=== PATIENT | female | born 1990 | race Asian ===

== ENCOUNTER 2020-12-19 08:14 | Inpatient (IN) | payer OTHER ==
[~2020-12-19] VITALS: Ht 167.6 cm; Wt 76.0 kg
[2020-12-19] MEDS: LACTATED RINGERS 1,000 ML IV SCH ×3 (08:30→22:30)
[2020-12-19 08:52] LABS: BASOPHILS % (AUTO) 0 % (0-1); EOSINOPHILS % (AUTO) 0 % (1-7); LYMPHOCYTES % (AUTO) 10 % (22-44); MEAN CORPUSCULAR HEMOGLOBIN 33.4 pg (27.0-34.8); MEAN CORPUSCULAR HGB CONC 34.1 g/dL (32.4-35.8); MEAN PLATELET VOLUME 8.2 fL (7.4-10.4); MONOCYTES % (AUTO) 5 % (2-9); NEUTROPHILS % (AUTO) 84 % (42-75); PLATELET COUNT 253 x10^3/uL (130-400); RED BLOOD COUNT 3.62 x10^6/uL (3.82-5.3)
[2020-12-19] MEDS ORDERED: OXYTOCIN 30U/ 0.9% NaCL 500ML 500 ML IV ONE (09:00)
[2020-12-19] MEDS ORDERED: METOCLOPRAMIDE 5 MG/ML, 2ML IVPush PRN (09:00)
[2020-12-19] MEDS ORDERED: CALCIUM CARBONATE 500 MG TAB.CHEW PO PRN (09:00)
[2020-12-19] MEDS ORDERED: OXYTOCIN 30U/ 0.9% NaCL 500ML 500 ML IV PRN (09:00)
[2020-12-19] MEDS ORDERED: SODIUM CITRATE/CITRIC ACID 30 ML UDC PO PRN (09:00)
[2020-12-19] MEDS ORDERED: FENTANYL PF 100 MCG/2ML IV PRN (09:00)
[2020-12-19] MEDS ORDERED: FENTANYL PF 100 MCG/2ML IVPush PRN (09:00)
[2020-12-19] MEDS ORDERED: TERBUTALINE 1 MG/ML, 1ML IVPush PRN (09:00)
[2020-12-19] MEDS ORDERED: D5%-LACTATED RINGERS 1,000 ML IV SCH (09:00)
[2020-12-19] MEDS ORDERED: ONDANSETRON 2MG/ML, 2ML IVPush PRN ×2 (09:00→22:30)
[2020-12-19] MEDS ORDERED: TERBUTALINE 1 MG/ML, 1ML SQ PRN (09:00)
[2020-12-19 09:12] LABS: MD SCAN
[2020-12-19] MEDS ORDERED: BUPIVACAINE 0.25% ONE (10:24)
[2020-12-19] MEDS ORDERED: FENTANYL/BUPIV./NS/PF 250 ML EPIDCONT ONE (10:25)
[2020-12-19] MEDS ORDERED: LIDOCAINE 1%, 20ML ONE (10:54)
[2020-12-19] MEDS ORDERED: MISOPROSTOL 200 MCG TABLET ONE (10:54)
[2020-12-19] MEDS ORDERED: NEWBORN KIT ONE (15:38)
[2020-12-19] MEDS ORDERED: IBUPROFEN 600 MG TABLET PO PRN ×2 (16:00→22:30)
[2020-12-19] MEDS ORDERED: DOCUSATE 100 MG CAPSULE PO PRN ×2 (16:00→22:30)
[2020-12-19] MEDS ORDERED: ACETAMINOPHEN 325 MG TABLET PO PRN ×2 (16:00→22:30)
[2020-12-19] MEDS ORDERED: OXYTOCIN 30U/ 0.9% NaCL 500ML 500 ML IV SCH ×2 (16:00→22:30)
[2020-12-19] MEDS ORDERED: HYDROcodone/APAP 5/325 TABLET PO PRN ×2 (16:00→22:30)
[2020-12-19] MEDS ORDERED: OXYcodone IR 5MG TABLET PO PRN ×2 (16:00→22:30)
[2020-12-19] MEDS ORDERED: MISOPROSTOL 200 MCG TABLET PR PRN ×2 (16:00→22:30)
[2020-12-19] MEDS ORDERED: SIMETHICONE 80 MG CHEW TAB PO PRN ×2 (16:00→22:30)
[2020-12-19] MEDS ORDERED: BISACODYL 10 MG SUPP PR PRN ×2 (16:00→22:30)
[2020-12-19 18:07] VITALS: BP 108/68
[2020-12-19 19:30] VITALS: BP 102/65
[2020-12-19] MEDS ORDERED: LACTATED RINGERS 1,000 ML IVBOLUS PRN (22:30)
[2020-12-19] MEDS ORDERED: FENTANYL/BUPIV./NS/PF 250 ML EPIDCONT SCH (22:30)
[2020-12-19] MEDS ORDERED: NALOXONE 0.4 MG/ML, 1ML IVPush PRN (22:30)
[2020-12-19] MEDS ORDERED: DIPHENHYDRAMINE 50 MG/ML, 1ML IVPush PRN (22:30)
[2020-12-19] MEDS ORDERED: EPHEDRINE 50 MG/ML, 1ML IVPush PRN (22:30)
[2020-12-19 23:50] VITALS: BP 101/64
[2020-12-20 03:30] VITALS: BP 103/71
[2020-12-20 06:16] LABS: BASOPHILS % (AUTO) 0 % (0-1); EOSINOPHILS % (AUTO) 1 % (1-7); LYMPHOCYTES % (AUTO) 15 % (22-44); MEAN CORPUSCULAR HEMOGLOBIN 33.5 pg (27.0-34.8); MEAN CORPUSCULAR HGB CONC 34.2 g/dL (32.4-35.8); MEAN PLATELET VOLUME 8.6 fL (7.4-10.4); MONOCYTES % (AUTO) 9 % (2-9); NEUTROPHILS % (AUTO) 76 % (42-75); PLATELET COUNT 216 x10^3/uL (130-400); RED BLOOD COUNT 3.34 x10^6/uL (3.82-5.3); RED CELL DISTRIBUTION WIDTH 13.3 % (9.6-15.2)
[2020-12-20 06:22] LABS: MD NO
[2020-12-20] MEDS: LACTATED RINGERS 1,000 ML IV SCH (06:30)
[2020-12-20 07:28] VITALS: BP 103/68
[2020-12-20] MEDS ORDERED: PRENATAL VIT/IRON/FA 1 EACH TABLET PO SCH ×2 (09:00)
[2020-12-20 11:15] VITALS: BP 119/77
== END 2020-12-20 17:15 | disposition home or self-care (01) | DRG 807 ==
LOC: LDOP 08:14 → LDIP 08:31 → 2NW 17:45
PROVIDERS: ADMIT Obstetrics & Gynecology; ATTEND Obstetrics & Gynecology
PROC: 10E0XZZ Delivery of Products of Conception, External Approach (ICD-10-PCS; principal; 2020-12-19)
PROC: 3E0R3BZ Introduction of Anesthetic Agent into Spinal Canal, Percutaneous Approach (ICD-10-PCS; 2020-12-19)
PROC: 00HU33Z Insertion of Infusion Device into Spinal Canal, Percutaneous Approach (ICD-10-PCS; 2020-12-19)
PROC: 10H07YZ Insertion of Other Device into Products of Conception, Via Natural or Artificial Opening (ICD-10-PCS; 2020-12-19)
DX: O70.0 First degree perineal laceration during delivery (principal); Z37.0 Single live birth; Z20.822 Contact with and (suspected) exposure to COVID-19; Z3A.39 39 weeks gestation of pregnancy
CPT/HCPCS: 36415; 85025; 86592; 86850; 86900; 87635; G0378; J3010; J7120